=== PATIENT | male | born 1940 | race Caucasian/White ===

== ENCOUNTER 2017-06-24 10:31 | Emergency (ER) | payer MEDICARE, OTHER ==
[2017-06-24] MEDS ORDERED: Tetracaine HCl/PF 0.5% 4 ML Bottle EYERT ONE (11:06)
[2017-06-24] MEDS ORDERED: Erythromycin Base 0.5% Ophth Oint 3.5 GM Tube EYERT ONE (11:23)
--- NOTE | 2017-06-24 11:27 | EDM.PDOC ---
ED HPI GENERAL MEDICAL PROBLEM - General Chief Complaint: Eye Problems Stated Complaint: Something in eye Time Seen by Provider: 06/24/17 10:55 Source of Information: Reports: Patient History Limitations: Reports: No Limitations - History of Present Illness INITIAL COMMENTS - FREE TEXT/NARRATIVE: Patient was grinding metal yesterday when he felt like he got something in his right eye. Was wearing protective glasses. Woke up this morning and still had FB sensation. Denies any changes in vision. Feels like the irritation is coming from around the cornea. No other complaints. - Related Data Allergies Allergy/AdvReac Type Severity Reaction Status Date / Time No Known Allergies Allergy Verified 06/29/15 23:00 Home Meds: Home Meds Aspirin 81 mg PO DAILY 06/29/15 [History] Dabigatran Etexilate Mesylate [Pradaxa] 75 mg PO DAILY 06/29/15 [History] Diltiazem [Cardizem CD] 240 mg PO DAILY 06/29/15 [History] Gabapentin [Neurontin] 100 mg PO BID 06/29/15 [History] Gabapentin [Neurontin] 300 mg PO BEDTIME 06/29/15 [History] Lisinopril 0.5 tab PO DAILY 06/29/15 [History] metFORMIN HCl [Metformin HCl] 1,000 mg PO BID 06/29/15 [History] Past Medical History Cardiovascular History: Reports: Afib, High Cholesterol, Hypertension Neurological History: Reports: Neuropathy, Peripheral Endocrine/Metabolic History: Reports: Diabetes, Type II Social & Family History - Family History Family Medical History: Noncontributory ED ROS GENERAL - Review of Systems Review Of Systems: ROS reveals no pertinent complaints other than HPI. ED EXAM GENERAL W FULL EYE - Physical Exam Exam: See Below Exam Limited By: No Limitations General Appearance: Alert, WD/WN, No Apparent Distress Eye Exam: Right Eye: Foreign Body (very small black speck imbedded in eye 3pm over iris), Bilateral Eye: EOMI, PERRL, Vision Changes (Denies) Eyelids: Bilateral: Normal Appearance Conjunctiva & Sclera: Bilateral: Normal Appearance Cornea Exam: Right: Foreign Body, Examined with Flourescein (No focal uptake noted, no identified abrasions/scratches) Extraocular Movements: Bilateral: Intact Pupillary Size: Bilateral: 5 mm Pupillary Reaction: Bilateral: Brisk Anterior Chamber: Bilateral: Normal Appearance Ears: Normal External Exam Nose: No: Nasal Drainage Head: Atraumatic, Normocephalic Neck: Supple Respiratory/Chest: No Respiratory Distress Neurological: Alert, Normal Cognition, Normal Gait Psychiatric: Normal Affect, Normal Mood Skin Exam: Warm, Dry, Intact, Normal Color ED EYE w/ Add Procedure - Eye Procedure Alcaine Drops Administered: Yes Eye FB Removal: Removal w/ Cotton Swab, Removal w/ Needle Antibiotic Oinment/Drps Admin: Right Eye Progress: Unsuccessful attempt to remove FB with swab. 30g needle then tried, followed by swab to clear debris. Recheck of cornea did not show remaining small black aylin. No other similar possible FBs noted. EMycin ointment placed in eye. Course - Vital Signs Last Recorded V/S: Last Vital Signs Temp 37.1 C 06/24/17 10:35 Pulse 60 06/24/17 10:35 Resp 16 06/24/17 10:35 BP 166/82 H 06/24/17 10:35 Pulse Ox 100 06/24/17 10:35 - Orders/Labs/Meds Meds: Medications Discontinued Medications Generic Name Dose Route Start Last Admin Trade Name Khoa PRN Reason Stop Dose Admin Erythromycin 1 gm 06/24/17 11:23 06/24/17 11:31 Erythromycin 0.5% Ophth Oint EYERT 06/24/17 11:24 1 applic ONETIME ONE Administration Tetracaine HCl 1 ml 06/24/17 11:06 06/24/17 11:09 Tetracaine 0.5% Steri-Unit Roseanne EYERT 06/24/17 11:07 1 drop ASDIRECTED ONE Administration - Re-Assessments/Exams Free Text/Narrative Re-Assessment/Exam: Attempt made to remove the very small black aylin that was identified on exam. This appeared to be successful. Precautions reviewed with patient prior to discharge, including instructions [facility] or [facility] for [facility] lamp evaluation on Sunday if any discomfort in the eye persists. He was agreeable/comfortable with plan. Departure - Departure Time of Disposition: 11:25 Disposition: Home, Self-Care 01 Condition: Good Clinical Impression: Foreign body, eye Qualifiers: Encounter type: initial encounter Laterality: right Qualified Code(s): T15.91XA - Foreign body on external eye, part unspecified, right eye, initial encounter - Discharge Information Instructions: Eye Foreign Body, [id number] Referrals: Enrrique Lora MD [Primary Care Provider] - Forms: ED Department Discharge Additional Instructions: Apply eye ointment as instructed (1/4 inch strip) in right eye 4 times a day for the next 4-5 days while eye is healing. If you continue to have a sensation of something in your eye, or discomfort worsens, after 24-48 hours, then [facility] or with local eye provider for slit lamp evaluation and re- examination. Follow up otherwise as needed. Care Plan Goals: [facility]
== END 2017-06-24 11:30 | disposition home or self-care (01) ==
LOC: LL.ED 10:31
DX: T15.91XA Foreign body on external eye, part unspecified, right eye, initial encounter (principal); I10 Essential (primary) hypertension; I48.91 Unspecified atrial fibrillation; E78.00 Pure hypercholesterolemia, unspecified; E11.9 Type 2 diabetes mellitus without complications; Z79.84 Long term (current) use of oral hypoglycemic drugs; Z79.82 Long term (current) use of aspirin; Z79.899 Other long term (current) drug therapy; X58.XXXA Exposure to other specified factors, initial encounter
CPT/HCPCS: 65205; 99282; 99283; A9270-GY